=== PATIENT | male | born 2000 | race Caucasian/White ===

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

== ENCOUNTER 2024-07-05 10:58 | Emergency (ER) | payer MEDICARE, OTHER ==
[~2024-07-05] VITALS: Ht 160 cm; Wt 62.0 kg
[~2024-07-05 10:58] MED LIST changes: +KEFLEX500 M1 PO
[2024-07-05] MEDS ORDERED: ALTEPLASE, RECOMBINANT 2 MG/VIAL IV ONE (12:45)
[2024-07-05] MEDS ORDERED: VANCOMYCIN HCL 1.5 GM in SODIUM CHLORIDE 0.9% 500 ML IV ONE (12:55)
[2024-07-05] MEDS ORDERED: VANCOMYCIN HCL 1 GM/VIAL IV ONE (13:15)
[2024-07-05] MEDS ORDERED: STERILE WATER 1 VIAL IV ONE (13:29)
[2024-07-05 16:00] VITALS: BP 127/76
== END 2024-07-05 16:40 | disposition home or self-care (01) ==
LOC: ED 10:58
DX: T82.594A Other mechanical complication of infusion catheter, initial encounter (principal); G91.9 Hydrocephalus, unspecified; Y83.8 Other surgical procedures as the cause of abnormal reaction of the patient, or of later complication, without mention of misadventure at the time of the procedure; Z98.2 Presence of cerebrospinal fluid drainage device
CPT/HCPCS: J2997; J3370

== ENCOUNTER 2024-08-19 08:49 | Emergency (ER) | payer MEDICARE, OTHER ==
[~2024-08-19] VITALS: Ht 160 cm; Wt 61.3 kg
[2024-08-19] VITALS (16 sets, daily range): BP systolic 103–138; BP diastolic 71–91
[2024-08-19 09:41] LABS: URINE BLOOD DIPSTICK Negative (NEGATIVE); URINE GLUCOSE - DIPSTICK Negative (NEGATIVE); URINE KETONE Negative (NEGATIVE); URINE LEUK ESTERASE Negative (NEGATIVE); URINE NITRITE - DIPSTICK Negative (Negative); URINE PH 5.5 (4.5-8.0); URINE PROTEIN - DIPSTICK Trace mg/dL (NEG-TRACE); URINE SPECIFIC GRAVITY 1.025; URINE UROBILINOGEN - DIPSTICK >=8.0 E.U./dL (0.2)
[2024-08-19 09:43] LABS: URINE COLOR Orange
[2024-08-19 09:45] LABS: BASO% 0.2 % (0-3); EOS% 0.2 % (0-8); HEMATOCRIT 44.3 % (39.0-50.0); HEMOGLOBIN 14.8 g/dl (14.0-18.0); IMMATURE GRANULOCYTES 1.6 % (0.0-5.0); LYMPH% 4.9 % (15-41); MEAN CORPUSCULAR HGB 29.7 pG CALC (26.0-32.0); MEAN CORPUSCULAR HGB CONC 33.4 g/dL CAL (32.0-36.0); MONO% 6.4 % (2-13); NEUT# 18.55 thou/uL (1.82-7.42); NEUT% 86.7 % (42-76); RED BLOOD COUNT 4.98 mill/uL (4.70-6.10); RED CELL DISTRI WIDTH 13.2 % (11.5-15.5)
[2024-08-19 09:53] LABS: CREATININE 0.8 mg/dL (0.7-1.3); POTASSIUM 4.4 mmol/l (3.5-5.1)
[2024-08-19 09:54] LABS: BILIRUBIN, TOTAL 1.5 mg/dL (0.2-1.3); TOTAL PROTEIN 6.9 g/dL (6.3-8.2)
[2024-08-19 09:55] LABS: ALBUMIN 3.1 g/dL (3.2-5.0)
[2024-08-19 13:17] LABS: URINE BILIRUBIN - DIPSTICK Negative (NEGATIVE); URINE BLOOD DIPSTICK Negative (NEGATIVE); URINE GLUCOSE - DIPSTICK Negative (NEGATIVE); URINE KETONE Negative (NEGATIVE); URINE LEUK ESTERASE Negative (NEGATIVE); URINE NITRITE - DIPSTICK Negative (Negative); URINE PH 5.5 (4.5-8.0); URINE PROTEIN - DIPSTICK Negative (NEG-TRACE); URINE UROBILINOGEN - DIPSTICK >=8.0 E.U./dL (0.2)
[2024-08-19 13:18] LABS: URINE COLOR Dark yellow
[2024-08-19] MEDS ORDERED: BACTRIM DS1 TAB PO (13:26)
== END 2024-08-19 13:40 | disposition home or self-care (01) ==
LOC: ED 08:49
PROVIDERS: Family Medicine
DX: D72.829 Elevated white blood cell count, unspecified (principal); R10.9 Unspecified abdominal pain; Z98.2 Presence of cerebrospinal fluid drainage device; G91.9 Hydrocephalus, unspecified; Z20.822 Contact with and (suspected) exposure to COVID-19
CPT/HCPCS: Q9967

== ENCOUNTER 2024-09-22 21:27 | Emergency (ER) | payer MEDICARE, OTHER ==
[~2024-09-22] VITALS: Ht 160 cm; Wt 54.4 kg
[~2024-09-22 21:27] MED LIST changes: +BACTRIM DS1 TAB PO
[2024-09-22] MEDS ORDERED: SODIUM CHLORIDE 0.9% 1,000 ML IV STA (21:31)
[2024-09-22 21:32] VITALS: BP 125/87
[2024-09-22 21:58] LABS: BASO% 0.5 % (0-3); EOS% 3.8 % (0-8); IMMATURE GRANULOCYTES 0.5 % (0.0-5.0); MEAN CORPUSCULAR HGB 28.7 pG CALC (26.0-32.0); MONO% 20.1 % (2-13); NEUT# 2.41 thou/uL (1.82-7.42); NEUT% 57.1 % (42-76); RED BLOOD COUNT 3.45 mill/uL (4.70-6.10); RED CELL DISTRI WIDTH 15.9 % (11.5-15.5)
[2024-09-22 22:00] VITALS: BP 127/84
[2024-09-22 22:12] LABS: BILIRUBIN, TOTAL 1.8 mg/dL (0.2-1.3); CREATININE 0.5 mg/dL (0.7-1.3); POTASSIUM 4.2 mmol/l (3.5-5.1); TOTAL PROTEIN 6.6 g/dL (6.3-8.2)
[2024-09-22 22:13] LABS: ALBUMIN 3.9 g/dL (3.2-5.0); HEMOGLOBIN 9.9 g/dl (14.0-18.0)
[2024-09-22] MEDS ORDERED: MEROPENEM1 GM IV (22:28)
[2024-09-22 22:30] VITALS: BP 127/80
[2024-09-22] MEDS ORDERED: VANCOMYCIN HCL125 M1 IV (22:31)
[2024-09-22] MEDS ORDERED: VANCOMYCIN HCL 500 MG/VIAL IV ONE (22:45)
[2024-09-22 23:00] VITALS: BP 141/94
[2024-09-22 23:24] LABS: URINE BILIRUBIN - DIPSTICK Negative (NEGATIVE); URINE BLOOD DIPSTICK Negative (NEGATIVE); URINE GLUCOSE - DIPSTICK Negative (NEGATIVE); URINE KETONE Trace mg/dL (NEGATIVE); URINE LEUK ESTERASE Negative (NEGATIVE); URINE NITRITE - DIPSTICK Negative (Negative); URINE PROTEIN - DIPSTICK Negative (NEG-TRACE)
[2024-09-22 23:27] LABS: URINE COLOR Yellow
[2024-09-22 23:30] VITALS: BP 122/78
[2024-09-22] MEDS ORDERED: MIRALAX17 GM PO (23:38)
[2024-09-22] MEDS ORDERED: MAGNESIUM CITRATE 296 ML/BTL PO ONE (23:40)
[2024-09-23] VITALS: BP 131/82
[2024-09-23 00:30] VITALS: BP 139/94
== END 2024-09-23 00:47 | disposition home or self-care (01) ==
LOC: ED 21:27
PROVIDERS: Family Medicine
DX: R00.0 Tachycardia, unspecified (principal); K59.00 Constipation, unspecified; G91.9 Hydrocephalus, unspecified; Z98.2 Presence of cerebrospinal fluid drainage device
CPT/HCPCS: J3370

== ENCOUNTER 2024-09-28 16:30 | Emergency (ER) | payer MEDICARE, OTHER ==
[~2024-09-28] VITALS: Ht 160 cm; Wt 59.0 kg
[~2024-09-28 16:30] MED LIST changes: +MEROPENEM1 GM IV; +MIRALAX17 GM PO; +VANCOMYCIN HCL125 M1 IV
[2024-09-28 17:10] VITALS: BP 127/15
== END 2024-09-28 17:15 | disposition home or self-care (01) ==
LOC: ED 16:30
DX: T82.524A Displacement of infusion catheter, initial encounter (principal); Y83.8 Other surgical procedures as the cause of abnormal reaction of the patient, or of later complication, without mention of misadventure at the time of the procedure; G91.9 Hydrocephalus, unspecified; Z98.2 Presence of cerebrospinal fluid drainage device